=== PATIENT | male | born 1970 | race Caucasian/White ===

== ENCOUNTER 2020-07-07 10:07 | Outpatient (REF) | payer MEDICAID, SELFPAY ==
[2020-07-07 12:49] LABS: MANUAL DIFF FLAG NO
[2020-07-07 12:52] LABS: Basophils Absolute Auto 0.1 X10*3/uL (0.0-0.2); Basophils Percent Auto 1.5 % (0-2); Eosinophils Absolute Auto 0.2 X10*3/uL (0.0-0.4); Eosinophils Percent Auto 3.9 % (0-4); Hematocrit 46.1 % (42-52); Hemoglobin 15.4 g/dl (14.0-18.0); Lymphocytes Absolute Auto 1.3 X10*3/uL (1.2-4.9); Mean Corpuscular HGB Conc 33.4 g/dl (31.0-36.0); Mean Corpuscular Hemoglobin 30.7 pg (27.0-33.0); Mean Platelet Volume 10.6 fL (9.4-12.4); Monocytes Absolute Auto 0.5 X10*3/uL (0.1-1.2); Monocytes Percent Auto 12.6 % (2-11); Platelet Count 204 X10*3/uL (160-400); Red Blood Count 5.01 X10*6/uL (4.60-5.80); Red Cell Distribution Width 12.7 % (11.0-16.0); White Blood Count 4.1 X10*3/uL (4.8-10.8)
[2020-07-07 13:22] LABS: Alanine Aminotransferase 26 U/L (0-40); Albumin Level 4.3 g/dL (3.5-5.0); Alkaline Phosphatase 42 U/L (39-117); Anion Gap 11 (12-20); Aspartate Amino Transferase 24 U/L (5-37); Bilirubin Total 0.4 mg/dL (0.0-1.0); Blood Urea Nitrogen 16 mg/dL (9-16); Calcium 9.1 mg/dL (8.4-10.2); Carbon Dioxide 27 mmol/L (22-29); Chloride 109 mmol/L (96-108); Cholesterol 157 mg/dL; Estimated Glomerular Filt Rate > 60; Glucose Fasting 92 mg/dL (60-99); HDL Cholesterol 52 mg/dL; LDL Cholesterol Calculated 93 mg/dl; Potassium 4.9 mmol/L (3.3-5.1); Sodium 142 mmol/L (135-145); Total Protein 6.7 g/dL (6.5-8.0); Triglycerides 60 mg/dL
[2020-07-07 13:47] LABS: Free T4 (Free Thyroxine) 0.94 ng/dL (0.71-1.85); Prostate Specific Antigen 0.26 ng/mL (<0.05-4.0); Thyroid Stimulating Hormone 1.17 uIU/mL (0.32-4.0)
== END 2020-07-07 10:08 | disposition home or self-care (01) ==
LOC: HO.MANLDS 10:07
PROVIDERS: PCP Internal Medicine; Visit Provider Physician Assistant
DX: Z00.00 Encounter for general adult medical examination without abnormal findings (principal)
CPT/HCPCS: 36415; 80053; 80061; 84153; 84439; 84443; 85025

== ENCOUNTER 2022-07-05 14:45 | Outpatient (REF) | payer MEDICAID, SELFPAY ==
[2022-07-05 18:44] LABS: MANUAL DIFF FLAG NO
[2022-07-05 19:07] LABS: Basophils Absolute Auto 0.1 X10*3/uL (0.0-0.2); Basophils Percent Auto 0.8 % (0-2); Eosinophils Absolute Auto 0.1 X10*3/uL (0.0-0.4); Eosinophils Percent Auto 1.5 % (0-4); Hemoglobin 15.5 g/dl (14.0-18.0); Imm Gran Abs Auto 0.04 X10*3/uL (0.00-0.03); Imm Gran Pct Auto 0.7 % (0.0-0.4); Lymphocytes Absolute Auto 1.7 X10*3/uL (1.2-4.9); Lymphocytes Percent Auto 28.8 % (20-40); Mean Corpuscular HGB Conc 33.7 g/dl (31.0-36.0); Mean Corpuscular Hemoglobin 30.1 pg (27.0-33.0); Mean Corpuscular Volume 89.3 fL (80.0-98.0); Mean Platelet Volume 10.6 fL (9.4-12.4); Monocytes Absolute Auto 0.6 X10*3/uL (0.1-1.2); Monocytes Percent Auto 9.7 % (2-11); Neutrophils Absolute Auto 3.5 x10*3/uL (2.0-8.3); Neutrophils Percent Auto 58.5 % (45-73); Platelet Count 209 X10*3/uL (160-400); Red Blood Count 5.15 X10*6/uL (4.60-5.80); Red Cell Distribution Width 12.5 % (11.0-16.0)
[2022-07-05 19:28] LABS: Erythrocyte Sedimentation Rate 1 MM/HR (0-15)
[2022-07-05 23:50] LABS: Alanine Aminotransferase 32 U/L (0-40); Albumin Level 4.5 g/dL (3.5-5.0); Alkaline Phosphatase 43 U/L (39-117); Amylase 109 U/L (28-100); Anion Gap 12 (12-20); Aspartate Amino Transferase 29 U/L (5-37); Bilirubin Total 1.2 mg/dL (0.0-1.0); Blood Urea Nitrogen 7 mg/dL (9-16); C Reactive Protein < 0.04 mg/dL (< or = 0.50); Calcium 9.6 mg/dL (8.4-10.2); Carbon Dioxide 26 mmol/L (22-29); Chloride 109 mmol/L (96-108); Estimated Glomerular Filt Rate > 60; Gamma Glutamyl Transpeptidase 18 U/L (11-51); Glucose Random 76 mg/dL (60-115); Iron 130 mcg/dL (45-160); Lipase 26 U/L (8-78); Percent Iron Saturation 48 % (15-50); Potassium 4.4 mmol/L (3.3-5.1); Sodium 143 mmol/L (135-145); Total Iron Binding Capacity 272 mcg/dL (228-428); Total Protein 6.9 g/dL (6.5-8.0); Unsaturated Iron Binding 142 ug/dL
[2022-07-06 00:02] LABS: Ferritin 142 ng/mL (20-250); Folate 18.2 ng/mL (> or = 4.0); Free T4 (Free Thyroxine) 0.94 ng/dL (0.71-1.85); Prostate Specific Antigen 0.42 ng/mL (<0.05-4.0); Thyroid Stimulating Hormone 1.88 uIU/mL (0.32-4.0); Vitamin B12 1013 pg/mL (200-900); Vitamin D 25-OH Total 26.9 ng/mL (>30)
[2022-07-06 04:45] LABS: Estimated Average Glucose 103 mg/dL; Hemoglobin A1c % 5.2 %
[2022-07-08 09:32] LABS: Lyme Abs Screen <0.90 index
[2022-07-14 17:39] LABS: Testosterone, Free 73.1 pg/mL (35.0-155.0); Testosterone, Total 778 ng/dL (250-1100)
== END 2022-07-05 14:46 | disposition home or self-care (01) ==
LOC: HO.MANLDS 14:45
PROVIDERS: Visit Provider Physician Assistant
DX: Z00.00 Encounter for general adult medical examination without abnormal findings (principal); Z12.5 Encounter for screening for malignant neoplasm of prostate; R53.83 Other fatigue; R10.31 Right lower quadrant pain; K52.89 Other specified noninfective gastroenteritis and colitis
CPT/HCPCS: 36415; 80053; 82150; 82306; 82607; 82728; 82746; 82977; 83036; 83540; 83690; 84153; 84402; 84403; 84439; 84443; 85025; 85652; 86140; 86617; 86618

== ENCOUNTER 2022-07-16 10:47 | Outpatient (REF) | payer OTHER, SELFPAY ==
[2022-07-21 11:14] LABS: Methylmalonic Acid 126 nmol/L (87-318)
== END 2022-07-16 10:48 | disposition home or self-care (01) ==
LOC: HO.MANLDS 10:47
PROVIDERS: Visit Provider Physician Assistant
DX: E53.8 Deficiency of other specified B group vitamins (principal); K86.89 Other specified diseases of pancreas
CPT/HCPCS: 36415; 83921

== ENCOUNTER 2022-07-23 12:10 | Outpatient (REF) | payer MEDICAID, SELFPAY ==
[2022-07-30 20:24] LABS: Pancreatic Elastase-1 >500 mcg/g
== END 2022-07-23 12:11 | disposition home or self-care (01) ==
LOC: HO.LNP 12:10
PROVIDERS: Visit Provider Physician Assistant
DX: K86.89 Other specified diseases of pancreas (principal)
CPT/HCPCS: 82656

== ENCOUNTER 2024-05-01 12:00 | Outpatient (REF) | payer MEDICAID, SELFPAY ==
[2024-05-01 18:40] LABS: MANUAL DIFF FLAG NO
[2024-05-01 19:07] LABS: Basophils Absolute Auto 0.1 X10*3/uL (0.0-0.2); Basophils Percent Auto 1.3 % (0-2); Eosinophils Absolute Auto 0.2 X10*3/uL (0.0-0.4); Eosinophils Percent Auto 4.2 % (0-4); Hematocrit 49.5 % (42.0-52.0); Hemoglobin 17.1 g/dl (14.0-18.0); Imm Gran Abs Auto 0.02 X10*3/uL (0.00-0.03); Imm Gran Pct Auto 0.4 % (0.0-0.4); Lymphocytes Absolute Auto 1.4 X10*3/uL (1.2-4.9); Lymphocytes Percent Auto 25.7 % (20-40); Mean Corpuscular HGB Conc 34.5 g/dl (31.0-36.0); Mean Corpuscular Hemoglobin 29.7 pg (27.0-33.0); Mean Corpuscular Volume 86.1 fL (80.0-98.0); Mean Platelet Volume 10.5 fL (9.4-12.4); Monocytes Absolute Auto 0.7 X10*3/uL (0.1-1.2); Monocytes Percent Auto 12.3 % (2-11); Neutrophils Absolute Auto 3.1 x10*3/uL (2.0-8.3); Neutrophils Percent Auto 56.1 % (45-73); Platelet Count 253 X10*3/uL (160-400); Red Blood Count 5.75 X10*6/uL (4.60-5.80); Red Cell Distribution Width 12.5 % (11.0-16.0); White Blood Count 5.4 X10*3/uL (4.8-10.8)
[2024-05-01 19:18] LABS: Anion Gap 16 (12-20)
[2024-05-01 19:30] LABS: Blood Urea Nitrogen 14 mg/dL (9-16); Calcium 9.5 mg/dL (8.4-10.2); Carbon Dioxide 25 mmol/L (22-29); Chloride 106 mmol/L (96-108); Estimated Glomerular Filt Rate > 60; Potassium 5.2 mmol/L (3.3-5.1); Sodium 142 mmol/L (135-145)
[2024-05-01 19:31] LABS: Alanine Aminotransferase 49 U/L (0-40); Albumin Level 4.4 g/dL (3.5-5.0); Alkaline Phosphatase 54 U/L (39-117); Aspartate Amino Transferase 45 U/L (5-37); Bilirubin Total 0.6 mg/dL (0.0-1.0); Cholesterol 146 mg/dL (<200); HDL Cholesterol 43 mg/dL (>40); LDL Cholesterol Calculated 87 mg/dL (<100); Total Protein 7.6 g/dL (6.5-8.0); Triglycerides 82 mg/dL (<150)
[2024-05-01 19:38] LABS: Thyroid Stimulating Hormone 2.48 uIU/mL (0.32-4.0)
[2024-05-01 19:41] LABS: Prostate Specific Antigen 0.23 ng/mL (<0.05-4.0); Vitamin B12 480 pg/mL (200-900)
[2024-05-01 19:46] LABS: T4 Thyroxine 7.6 ug/dL (4.5-12.0)
[2024-05-01 20:28] LABS: Glucose Random 55 mg/dL (60-115)
[2024-05-03 00:44] LABS: Sex Hormone Binding Globulin 82 nmol/L (10-50)
[2024-05-05 12:59] LABS: VITAMIN D (1,25 OH) D3 39 pg/mL; Vit D (1,25-Dihydroxy) Total 39 pg/mL (18-72); Vitamin D (1,25 OH) D2 <8 pg/mL
[2024-05-07 12:23] LABS: Testosterone, Total 948 ng/dL (250-1100)
== END 2024-05-01 12:01 | disposition home or self-care (01) ==
LOC: HO.MANLDS 12:00
PROVIDERS: Visit Provider Internal Medicine
DX: Z00.01 Encounter for general adult medical examination with abnormal findings (principal); R53.83 Other fatigue
CPT/HCPCS: 36415; 80053; 80061; 82607; 82652; 84153; 84270; 84403; 84436; 84443; 85025

== ENCOUNTER 2024-09-19 11:46 | Outpatient (REF) | payer OTHER, SELFPAY ==
--- OUTSIDE RECORDS SUMMARY | 2024-09-19 12:32 | XMS_ITS | Clinical Summary ---
Author Organization [employer] Address [address] [place] [address] Care Team Providers Care Kennel Worker Name Role Phone Unavailable Primary Care Provider Unavailabl e Allergies No known active allergies Medications No known medications Social History Tobacco Use Types Packs/Day Years Used Date Smoking Tobacco: Never Assessed Sex and Gender Information Value Date Recorded Sex Assigned at Male 01/28/2022 4:34 PM EST Legal Sex Male 5:35 PM EDT Gender Identity Male 01/28/2022 4:34 PM EST Sexual Orientation Choose not to disclose 2022 2:30 PM EDT Last Filed Vital Signs Vital Sign Reading Time Taken Comments Blood Pressure - - Pulse - - Temperature 36.8 C (98.2 F) 02/02/2022 10:04 AM EST Respiratory Rate - - Oxygen Saturation - - Inhaled Oxygen Concentration - - Weight - - Height - - Body Mass Index - - Plan of Treatment Upcoming Encounters Date Type Department Care Team (Late st Contact Info) Description 11/01/2024 11:00 AM EDT Office Visit [place] [facility] [address] [place] [address] Kiki Chung Health Maintenance Due Date Last Done Comments CT Colonography 1972 Colonoscopy 1972 Depression Screening 1972 FIT DNA/Cologuard 1972 FOBT 1972 HIV Screening 1972 Lipid Panel 1972 SDOH Screening 1972 Sigmoidoscopy 1972 Disability Screening 1972 Alcohol/Substance Use Screening 1984 Tobacco Screening 1984 Family Planning (PISQ) 05/09/1987 Hepatitis C Screening 1990 Hepatitis B Vaccines (1 of 3 - 19+ 3-dose series) 05/09/1991 Pneumococcal Vaccine: 50+ Years (1 of 1 - PCV) 2022 Zoster Vaccines (1 of 2) 2022 Colorectal Cancer Screening 07/11/2023 FIT 07/11/2023 07/10/2022 COVID-19 Vaccine (3 - 2023- season) 2023 07/07/2020, 06/08/2020 Dental X-Ray: Bitewings 09/15/2024 09/15/19, 08/16/2022, 08/25/2020, Additional history exists Influenza Vaccine (#1) 2024 Dental Oral Exam 10/21/2024 04/19/2024, 02/2023, 03/15/2023, Additional history exists Dental Prophylaxis 10/21/2024 04/19/2024, 0 09/15/2023, 03/15/2023, Additional history exists Dental X-Ray: Full Mouth 08/17/2025 08/16/2022, 01/14 DTaP/Tdap/Td Vaccines (2 - Td or Tdap) 07/13/2031 07/12/2021 RSV Patients and Patients Aged 60 years or older (1 - 1-dose 75+ series) 05/09/2047 HIB Vaccines Aged Out No longer eligi ble based on patient's age to complete this topic HPV Vaccines Aged Out No longer eligi ble based on patient's age to complete this topic Hepatitis A Vaccines Aged Out No long er eligible based on patient's age to complete this topic IPV Vaccines Aged Out No longer eligi ble based on patient's age to complete this topic Meningococcal B Vaccine Aged Out No l onger eligible based on patient's age to complete this topic Meningococcal Vaccine Aged Out No inocente shilpa eligible based on patient's age to complete this topic RSV under 20 months Aged Out No longe r eligible based on patient's age to complete this topic Rotavirus Vaccines Aged Out No longer eligible based on patient's age to complete this topic Procedures Procedure Name Priority Date/Time Associated Diagnosis Comments Full PROPHYLAXIS - ADULT Routine 025 2:00 PM EST PERIODIC ORAL EVALUATION - ESTABLISHED PATIENT Routine 04/19/2024 2:00 PM EST BITEWINGS - 4 RADIOGRAPHIC IMAGES Routine 09/15/2023 3:00 PM EDT INTRAORAL - COMPLETE SERIES OF RADIOGRAPHIC IMAGES Routine 08/16/2022 8:30 AM EDT Encounter for dental examination from Last 3 Months or Most Recently Relevant to Health Maintenance Insurance DENTAL - [place] DENTAL [place] PARTIAL (MEDICAID)
--- OUTSIDE RECORDS SUMMARY | 2024-09-19 12:32 | XMS_ITS | Clinical Summary ---
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 Not on peter e 06/11/2022 Are you concerned about learning? Not on file 06/11/2022 No 06/11/2022 No 06/11/2022 Digital Access Answer Date Recorded No 07/09/2022 No 07/09/2022 Reliable internet access at home? Not on file 07/09/2022 Device with a working camera? Not on file Sex and Gender Information Value Date Recorded Sex Assigned at Male 03/19/2017 10:04 PM EST Legal Sex Male 9:32 PM EDT Gender Identity Male 03/19/2017 10:04 PM EST Sexual Orientation Straight 03/19/2017 10 :04 PM EST Last Filed Vital Signs Vital Sign Reading Time Taken Comments Blood Pressure 127/82 07/05/2021 11:18 AM EDT Pulse 56 07/05/2021 11:18 AM EDT Temperature 36.8 C (98.2 F) 07/05/2021 11:18 AM EDT Respiratory Rate 18 07/05/2021 11:18 AM EDT Oxygen Saturation 100% 07/05/2021 11:18 AM EDT Inhaled Oxygen Concentration - - Weight 85 kg (187 lb 8 oz) 12/05/2023 9:28 AM ED T Height 177.8 cm (5' 10 ) 12/05/2023 9:28 AM EDT Body Mass Index 26.9 12/05/2023 9:28 AM EDT Plan of Treatment Health Maintenance Due Date Last Done Comments DEPRESSION SCREENING 1984 COLOGUARD 2017 FOBT 2017 SIGMOIDOSCOPY 2017 VIRTUAL COLONOSCOPY 2017 PNEUMOCOCCAL VACCINES (50+ years) (1 of 1 - PCV) 2022 ZOSTER VACCINES (1 of 2) 2022 FIT TEST 07/11/2023 07/10/2022 COVID-19 VACCINE (3 - 2023-2 5 season) 2023 07/07/2020, 06/09/2020 SCREENING FOR DIABETES 07/05/2024 07/05/2021 LIPID PANEL 07/07/2025 07/07/2020 COLONOSCOPY 04/22/2029 04/23/2019 COLORECTAL CANCER SCREENING 04/22/2029 Adult Td,Tdap Booster 07/13/2031 07/12/2021 HEPATITIS C SCREENING Completed 11/16/2017 , 11/16/2017 HIV ONE-TIME SCREENING (18-6 5 YEARS) Completed 11/16/2017 SMOKING STATUS SCREENING (On ce After 26 Yrs) Completed 12/05/2023 HEPATITIS A VACCINES Aged Out No long er eligible based on patient's age to complete this topic HIB VACCINES Aged Out No longer eligi ble based on patient's age to complete this topic MENINGOCOCCAL VACCINES (ACWY) Aged Out No longer eligible based on patient's age to complete this topic MENINGOCOCCAL VACCINES (B) Aged Out N o longer eligible based on patient's age to complete this topic Medical Devices Not on file Procedures Procedure Name Priority Date/Time Associated Diagnosis Comments HC BLOOD OCCULT FECAL HGB DETER IA QUAL FECES 1-3 Routine 07/10/2022 8:27 AM EDT RLQ abdominal pain Blood in stool ENDOSCOPY, COLON 04/23/2019 8:37 AM EDT HEPATITIS C ANTIBODY, QUALITATIVE Routine 11/16/2017 10:15 AM EDT Screening examination for venereal disease from Last 3 Months or Most Recently Relevant to Health Maintenance Results * Fecal immunochemical test x1 (FIT) (07/10/2022 8:27 AM EDT) Immuno Fecal Occult Negative Negative [facility] Stool (Stool) 07/10/2022 8:2 7 AM EDT 07/10/2022 8:29 AM EDT Fariba BHAGAT BODY FLUIDS AND STOOLS JENISE SORTO Final Result [address] [address] * ENDOSCOPY, COLON (04/23/2019 8:37 AM EDT) Narrative Transcriptions Scott Bardales MD - 04/23/2019 8:37 AM EDT Patient Name: Hiram Godoy MD:: SCOTT BARDALES MD Procedure Date: 04/23/2019 8:37 AM Date of : 1970 Age: 48 Admit Type: Outpatient Gender: Male Room: [facility] Referring MD: CARLOTTA DUFF DO Exam Type: Colonoscopy Indications: Abdominal pain in the right lower quadrant, Changein stool caliber Medications: Monitored Anesthesia Care Procedure: Informed consent was obtained from the patient after discussion of the indications, limitations, alternatives, benefits, and risks of the procedure. Risks specifically discussed include but are not limited to medication reactions, missed lesions, bleeding, perforation, or the need for emergentsurgery. Throughout the procedure, the patient's bloodpressure, pulse, end-tidal CO2, and oxygen saturations were monitored continuously. The Olympus pediatric variable colonoscopePCF-[id number] #1 was introduced through the anus and advanced tothe terminal ileum, with identification of theappendiceal orifice and IC valve. The colonoscopy was performed without difficulty. The patient tolerated theprocedure well. The quality of the bowel preparation was evaluated using the BBPS ([place] Bowel Preparation Scale) with scores of: Right Colon = 3, Transverse Colon = 3 and Left Colon = 3 (entire mucosa seenwell with no residual staining, small fragments of stoolor opaque liquid). The total BBPS score equals 9. Complications: No immediate complications. Estimated blood loss:None. Findings: The perianal and digital rectal examinations were normal. Pertinent negatives include normal sphincter tone. The terminal ileum appeared normal. Retroflexion in the right colon was performed. The exam was otherwise without abnormality on direct and retroflexion views. Impression: - The examined portion of the ileum was normal. - The examination was otherwise normal on direct and retroflexion views. - No specimens collected. Recommendation: - Reassurance - Repeat colonoscopy in 10 years for screeningpurposes. - Consider antispasmodics for further symptoms. SCOTT BARDALES MD 04/23/2019 9:02:33 AM This report has been signed electronically. Number of Addenda: 0 Note Initiated On: 04/23/2019 8:37 AM Procedure Code(s): --- Professional --- 68415, Colonoscopy, flexible; diagnostic, including collection of specimen(s) by brushing or washing, when performed (separateprocedure) --- Technical --- 08053, Colonoscopy, flexible; diagnostic, including collection of specimen(s) by brushing or washing, when performed (separateprocedure) Diagnosis Code(s): --- Professional --- R10.31, Right lower quadrant pain R19.5, Other fecal abnormalities --- Technical --- R10.31, Right lower quadrant pain R19.5, Other fecal abnormalities CPT copyright 2018 [employer]. All rights reserved. The codes documented in this report are preliminary and upon asphalt layer reviewmay be revised to meet current compliance requirements. Procedure Date: 04/23/2019 8:37:[address] [place] [id number] us Carlotta A Bigda DO GI PROCEDURE ORDERABLES Final Re sult * Hepatitis C antibody, qualitative (11/16/2017 10:15 AM EDT) HCV Negative Negative [facility] Comment: This is a screening test and should be confirmed with molecular testing Blood 11/16/2017 10:1 5 AM EDT 11/16/2017 10:18 AM EDT us May Oksana WYNN LAB BLOOD ORDERABLES Final R esult [facility] [address] [place] [address] from Last 3 Months or Most Recently Relevant to Health Maintenance Insurance [facility] [address] [address] [place] [address] [place] [address] [place] [address] [place] [address] [place] [address] [place] [address] [facility] [place] Address: [place] [address] Advance Directives For more information, please contact: [phone] (9AM - 5PM [facility], Tuesday-Tuesday) * Full Code (Presumed) (Latest Code Status on File) Date Activated Date Inactivated Comments 03/03/2018 9:00 PM 03/04/2018 1:55 PM Care Teams Pigment Pumper Relationship Specialty Start Date End Date Fariba Faria PA [address] [facility] [place] [address] PCP - General Physician Security Checker 09/23/22 Additional Source Comments The information contained in this document represents components of the legal health record. It is not the complete legal health record.[facility]
== END 2024-09-19 11:47 | disposition home or self-care (01) ==
LOC: HO.MANLDS 11:46
PROVIDERS: Visit Provider Physician Assistant
DX: R53.83 Other fatigue (principal)
CPT/HCPCS: 36415; 84270

== ENCOUNTER 2024-09-26 11:32 | Outpatient (REF) | payer OTHER, SELFPAY ==
--- OUTSIDE RECORDS SUMMARY | 2024-09-26 12:34 | XMS_ITS | Clinical Summary ---
Author Organization [employer] Address [address] [place] [address] Care Team Providers Care Policy Change Clerks Supervisor Name Role Phone Unavailable Primary Care Provider [...] Description 11/01/2024 11:00 AM EDT Office Visit [place] [facility] [address] [place] [address] Kiki Chung Health Maintenance Due Date Last [...] DENTAL - [place] D[facility]AL [place] [facility] DENT[place] - [place] PARTIAL (MEDICAID)
[2024-09-26 13:52] LABS: MANUAL DIFF FLAG NO
[2024-09-26 14:04] LABS: Hematocrit 44.7 % (42.0-52.0); Hemoglobin 15.1 g/dl (14.0-18.0); Imm Gran Abs Auto 0.02 X10*3/uL (0.00-0.03); Imm Gran Pct Auto 0.4 % (0.0-0.4); Lymphocytes Absolute Auto 1.0 X10*3/uL (1.2-4.9); Mean Corpuscular HGB Conc 33.8 g/dl (31.0-36.0); Mean Corpuscular Hemoglobin 29.4 pg (27.0-33.0); Mean Corpuscular Volume 87.1 fL (80.0-98.0); NRBC Abs Auto 0.000 X10*3/uL (0.0-0.012); NRBC Pct Auto 0.0 /100WBC (0.0-0.2); Platelet Count 227 X10*3/uL (160-400); Red Blood Count 5.13 X10*6/uL (4.60-5.80); White Blood Count 5.4 X10*3/uL (4.8-10.8)
[2024-09-26 14:41] LABS: Alanine Aminotransferase 29 U/L (0-40); Albumin Level 4.5 g/dL (3.5-5.0); Alkaline Phosphatase 51 U/L (39-117); Anion Gap 15 (12-20); Aspartate Amino Transferase 34 U/L (5-37); Blood Urea Nitrogen 21 mg/dL (9-16); Calcium 8.8 mg/dL (8.4-10.2); Carbon Dioxide 24 mmol/L (22-29); Chloride 105 mmol/L (96-108); Cholesterol 155 mg/dL (<200); Estimated Glomerular Filt Rate 55; HDL Cholesterol 50 mg/dL (>40); Potassium 3.9 mmol/L (3.3-5.1); Sodium 140 mmol/L (135-145); Total Protein 6.9 g/dL (6.5-8.0); Triglycerides 72 mg/dL (<150)
[2024-09-26 14:53] LABS: Vitamin B12 455 pg/mL (200-900)
== END 2024-09-26 11:33 | disposition home or self-care (01) ==
LOC: HO.MANLDS 11:32
PROVIDERS: Visit Provider Internal Medicine
DX: Z13.220 Encounter for screening for lipoid disorders (principal); E53.8 Deficiency of other specified B group vitamins; R53.83 Other fatigue; Z13.6 Encounter for screening for cardiovascular disorders; Z13.21 Encounter for screening for nutritional disorder
CPT/HCPCS: 36415; 80053; 80061; 82306; 82607; 84403; 85025